=== PATIENT | male | born 1965 | race American Indian/Alaskan Native ===

== ENCOUNTER 2018-07-16 19:41 | Emergency (ER) | payer OTHER ==
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
[2018-07-16] MEDS ORDERED: PERCOCET 5/325 PO ONE (22:07)
[2018-07-16] MEDS ORDERED: IBUPROFEN PO ONE (22:07)
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
[2018-07-17 00:53] VITALS: BP 127/79
== END 2018-07-16 23:55 | disposition home or self-care (01) ==
LOC: ED 19:41
DX: S39.012A Strain of muscle, fascia and tendon of lower back, initial encounter (principal); S16.1XXA Strain of muscle, fascia and tendon at neck level, initial encounter; M25.551 Pain in right hip; M25.511 Pain in right shoulder; I10 Essential (primary) hypertension; J44.9 Chronic obstructive pulmonary disease, unspecified; F17.200 Nicotine dependence, unspecified, uncomplicated; V49.49XA Driver injured in collision with other motor vehicles in traffic accident, initial encounter; Y93.89 Activity, other specified; Y92.488 Other paved roadways as the place of occurrence of the external cause; Y99.8 Other external cause status
CPT/HCPCS: 71250; 72100; 72125; 74176